=== PATIENT | male | born 2005 | race Caucasian/White ===

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

== ENCOUNTER 2024-12-23 10:53 | Emergency (ER) | payer BC, SELFPAY ==
[2024-12-23 10:55] VITALS: BP 168/78; PULSE 40; RESP 15; TEMP 36.4; O2SAT 99
--- NOTE | 2024-12-23 11:16 | W.ED.GENAD ---
Discharge Plan Disposition Patient Disposition: Home Condition: Stable Discharge Details Clinical Impression: Maculopapular rash, generalized Primary Care Provider: Unknown,Unknown ED Provider: Jailene Correa Home Meds and New Rx's Prescriptions: New ketoconazole 2 % cream 1 applic topical DAILY 7 Days Qty: 30 0RF Rx Instructions: Apply to the affected area once daily for no more than 7 days Discharge Instructions Instructions: Topical corticosteroid medicines, Fungal Skin Rash, Skin Rash ED Additional Instructions: Please apply the hydrocortisone cream no more than twice a day for the next 3 to 5 days. If no improvement after 3 days please start the ketoconazole cream as directed. I do believe this looks like a fungal rash and should get better with the above-mentioned treatments. Follow up with primary care provider in 7-10 days if no improvement. Return to ED sooner if any worsening or concerns. Referrals: Primary Care Provider [Outside] - 1 week HPI General Mode of arrival: ambulatory. Date/Time Provider Initiated Documentation: 12/23/24 10:55. Limitations to Documentation: no limitations. Information obtained by: patient, RN notes reviewed and old records reviewed. HPI Narrative: 19-year-old male presents to the ER with a chief complaint of rash noted to his torso and legs which has been ongoing for approximately a month. He was seen approximately 2 weeks ago at urgent care and was given doxycycline which has done little to anything to relieve the rash. He reports that it has spread. He reports mild intermittent itching. He has been wearing longsleeve close to lessen the exposure. He reports that he may have gotten it from some gym equipment. Denies any body aches chills nausea vomiting diarrhea or any known source or any other associated symptoms. He has round red raised scaly maculopapular rash noted. Has not tried any topical treatment such as hydrocortisone cream or antifungal cream at home. Related Data Home Medications ?Medication ?Instructions ?Recorded ?Confirmed ketoconazole 2 % topical cream 1 applic topical DAILY Rash 7 days 12/23/24 #30 grams Previous Rx's ?Medication ?Instructions ?Recorded ketoconazole 2 % topical cream 1 applic topical DAILY Rash 7 days 12/23/24 #30 grams Allergies Allergy/AdvReac Type Severity Reaction Status Date / Time peanut Allergy Severe rash Verified 12/23/24 10:59 tree nut AdvReac Severe rash Verified 12/23/24 10:59 General Stated Complaint: RashLesion MINAL: 4 Review of Systems All systems reviewed & are unremarkable except as noted in HPI and below Integumentary/Breasts Skin/Breast: Reports as per HPI and Reports rash Exam Skin Rashes: rashes noted maculopapular rash diffuse multiple locations size (0.5mm), arrangement confluent, borders raised, color red, fluctuant and surface rough and scaly Wounds: no wounds Course Vital Signs Vital signs: Vital Signs Temperature 36.4 C L 12/23/24 10:55 Pulse 40 L 12/23/24 10:55 Respiratory Rate 15 12/23/24 10:55 Blood Pressure 168/78 H 12/23/24 10:55 Pulse Oximetry 99 12/23/24 10:55 Temperature 36.4 C L 12/23/24 10:55 Pulse 40 L 12/23/24 10:55 Respiratory Rate 15 12/23/24 10:55 Blood Pressure 168/78 H 12/23/24 10:55 Blood Pressure Position Sitting 12/23/24 10:55 Pulse Oximetry 99 12/23/24 10:55 Oxygen Delivery Method Room Air 12/23/24 10:55 Oxygen Flow Rate 0 12/23/24 10:55 Medical Decision Making 19-year-old male presents to the ER with a chief complaint of rash noted to his torso and legs which has been ongoing for approximately a month. He was seen approximately 2 weeks ago at urgent care and was given doxycycline which has done little to anything to relieve the rash. He reports that it has spread. He reports mild intermittent itching. He has been wearing longsleeve close to lessen the exposure. He reports that he may have gotten it from some gym equipment. Denies any body aches chills nausea vomiting diarrhea or any known source or any other associated symptoms. He has round red raised scaly maculopapular rash noted. Has not tried any topical treatment such as hydrocortisone cream or antifungal cream at home. Rash is consistent with fungal etiology. Will dispense hydrocortisone cream and instruct on trying Ketoconazole cream after 3 days if no improvement with hydrocortisone. Prescription written for ketoconazole. Instructed on use and home care and follow-up care verbalized understanding. This text was generated using Rolithation system, please disregard any oddities of phrase or misspellings. Quality:[facility] Health Related Social Needs: No Data to Display PFSH All Active Problems (Updated 12/23/24 @ 11:23 by Jailene Correa NP) Maculopapular rash, generalized (Acute) Social History Smoking risk assessment performed?: No Alcohol Intake: never
[2024-12-23] MEDS: Hydrocortisone 1% CR 30 GM TUBE TP (11:35)
== END 2024-12-23 11:36 | disposition home or self-care (01) ==
PROVIDERS: Emergency Provider Registered Nurse Emergency
DX: R21 Rash and other nonspecific skin eruption (principal)
CPT/HCPCS: 99283

== ENCOUNTER 2025-01-06 12:51 | Emergency (ER) | payer BC, SELFPAY ==
[2025-01-06 12:56] VITALS: BP 127/53; PULSE 46; RESP 12; TEMP 36.4; O2SAT 99
--- NOTE | 2025-01-06 14:00 | ED.GENADUL_ITS ---
Discharge Plan Disposition Patient Disposition: Home Discharge Details Clinical Impression: Scaly patch rash Primary Care Provider: Unknown,Unknown ED Provider: Ray Vela Home Meds and New Rx's Prescriptions: No Action No Known Home Meds Discharge Instructions Additional Instructions: You are seen in the emergency department for your rash. A referral has been placed to [facility] dermatology. They will call you for an appointment. You will receive a call back if you have any concerning results from the lab work that was drawn today. Discharge Data Discharge Date/Time-TO BE ENTERED AT DEPARTURE: 01/06/25 14:41 HPI General Date/Time Provider Initiated Documentation: 01/06/25 13:19 . HPI Narrative: MDM This is a quite well-appearing afebrile and not tachycardic 19-year-old male with blanching salmon-colored plaques concerning for possibility of syphilis for which patient will undergo RPR testing in the emergency department. No pain out of proportion to suggest necrotizing soft tissue infection. No oral involvement to suggest TEM. No bullae to suggest Taylor-Caesar syndrome. No fevers or new medications to suggest dress. It certainly possible that the patient could be having atypical eczema eczema. No tick bites to suggest Lyme disease. No nuchal rigidity fevers no petechiae to suggest meningitis. No bullae to suggest bullous pemphigoid. Patient is not ill-appearing or elderly to suggest pulm suggest vulgaris. No vesicles to suggest zoster. No purpura to suggest vasculitis. No characteristic bites to suggest scabies. Similarly only minimal pruritus. No linear lesions to suggest bedbugs. No oral involvement to suggest anaphylaxis. 2:53 PM I spoke with Dr. Saeed Pressley from [facility] dermatology who arranged outpatient follow-up with the patient tomorrow at 4 PM. I left the patient a message explaining his follow up on 01/07 at 4pm w/derm at [facility] on [address] in [place], [place]. 01/07 Patient's RPR returned negative. HPI This is a 19-year-old male arrived emergency department in the setting of a rash patient has had multiple visits in the past month. He was initially seen at urgent care earlier this month. He was treated for staph skin infection secondary to gym use. He received doxycycline but this did not improve rash is minimally itchy. He has remote history of eczema. He received all his immunizations during childhood. He is engaged recently with oral sex. He denies any unintentional weight loss. He denies any unintentional weight loss. No new personal care products. No trouble breathing. Exam General: Well-appearing in no acute distress speaking in complete sentences. Head: Normocephalic, atraumatic. Eye: Extraocular eye movements intact. No conjunctival injection. No scleral icterus. Ear, nose, mouth, throat: Grossly normal inspection. Normal voice, handling secretions normally. Neck: Trachea midline. Cardiovascular: Well-perfused distal extremities. Respiratory: Nonlabored respiration. Gastrointestinal: Nondistended abdomen. Musculoskeletal: No edema. Moving all 4 extremities spontaneously. Skin: Overlying the patient's back was there are numerous salmon-colored plaques with occasional fine scaling. Plaques are blanchable. No bullae. No petechiae. Neurologic: Alert and appropriate, no apparent acute deficits. Psychiatric: Mood and manner are appropriate. Grooming and personal hygiene are appropriate. Related Data Home Medications ?Medication ?Instructions ?Recorded ?Confirmed Unknown [No Known Home Meds] 01/06/25 01/06/25 Allergies Allergy/AdvReac Type Severity Reaction Status Date / Time peanut Allergy Severe rash Verified 01/06/25 13:00 tree nut AdvReac Severe rash Verified 01/06/25 13:00 General Stated Complaint: RashLesion MINAL: 4 Course Vital Signs Vital signs: Vital Signs Temperature 36.4 C L 01/06/25 12:56 Pulse 46 L 01/06/25 12:56 Respiratory Rate 12 01/06/25 12:56 Blood Pressure 127/53 L 01/06/25 12:56 Pulse Oximetry 99 01/06/25 12:56 Temperature 36.4 C L 01/06/25 12:56 Temperature Source Oral 01/06/25 12:56 Pulse 46 L 01/06/25 12:56 Respiratory Rate 12 01/06/25 12:56 Blood Pressure 127/53 L 01/06/25 12:56 Blood Pressure Position Sitting 01/06/25 12:56 Pulse Oximetry 99 01/06/25 12:56 Oxygen Delivery Method Room Air 01/06/25 12:56 Oxygen Flow Rate 0 01/06/25 12:56 Pain Level 0 01/06/25 12:56 Medical Decision Making Quality:SDOH Health Related Social Needs: 2 No Data to Display PFSH All Active Problems (Updated 01/06/25 @ 14:03 by Ray Vela MD) Scaly patch rash (Acute) Maculopapular rash, generalized (Acute) Social History Smoking/Tobacco Use Status: Never Smoking risk assessment performed?: Yes Alcohol Intake: never Drug use: Never Substance use type: does not use Housing: apartment Do you feel safe at home: Yes Do you feel safe in your relationship?: Yes
[2025-01-07 10:32] LABS: Syphilis Serology (RPR) Negative (Negative)
== END 2025-01-06 14:41 | disposition home or self-care (01) ==
LOC: ER 14:19
PROVIDERS: Emergency Provider Emergency Medicine
DX: R21 Rash and other nonspecific skin eruption (principal)
CPT/HCPCS: 99283; 86592